=== PATIENT | female | born 1940 | race Caucasian/White ===

== ENCOUNTER 2017-06-02 13:34 | Day surgery (SDC) | payer OTHER ==
[2017-06-02] MEDS ORDERED: BETADINE OPHTH SOLN 5% EACHEYE ONE (13:35)
[2017-06-02] MEDS ORDERED: TETRACAINE 0.5% OPHTH 1 DOSE AFFEYE ONE ×3 (13:35→14:42)
[2017-06-02] MEDS ORDERED: NS 500 ML IV 500 ML IV ONE (13:46)
[2017-06-02] MEDS ORDERED: VIGAMOX 0.5% OPHTH 1 DOSE AFFEYE ONE ×5 (13:50→15:00)
[2017-06-02] MEDS ORDERED: PROLENSA OPHTH 1 DOSE AFFEYE ONE (14:01)
[2017-06-02] MEDS ORDERED: ALPHAGAN-P OPHTH 1 DOSE AFFEYE ONE (14:02)
[2017-06-02] MEDS ORDERED: CYCLOGYL 1% OPHTH 1 DOSE OP ONE ×3 (14:03→14:15)
[2017-06-02] MEDS ORDERED: AK-DILATE 2.5% OPHTH 1 DOSE OP ONE ×3 (14:03→14:15)
[2017-06-02] MEDS ORDERED: MYDRIACIL OPHTH 1 DOSE AFFEYE ONE ×3 (14:04→14:15)
[2017-06-02] MEDS ORDERED: DIPRIVAN VIAL ONE (14:17)
[2017-06-02] MEDS ORDERED: VERSED ONE (14:17)
[2017-06-02] MEDS ORDERED: DUOVISC IO ONE (14:43)
[2017-06-02] MEDS ORDERED: BSS OPHTH (PLAIN) 500 ML with VANCOMYCIN HCL 500 MG VIAL 25 MG, ADRENALINE CHL INJ 1 MG IR ONE ×3 (14:43)
[2017-06-02] MEDS ORDERED: XYLOCAINE-MPF 1% IJ ONE (14:43)
[2017-06-02] MEDS ORDERED: ADRENALINE CHL INJ IJ ONE (14:43)
[2017-06-02 16:15] VITALS: BP 139/80
== END 2017-06-02 15:25 | disposition home or self-care (01) ==
LOC: SURG1 13:34
PROVIDERS: ATTEND Ophthalmology
PROC: 08RK3JZ Replacement of Left Lens with Synthetic Substitute, Percutaneous Approach (ICD-10-PCS; principal; 2017-06-02 20:30)
PROC: 08DK3ZZ Extraction of Left Lens, Percutaneous Approach (ICD-10-PCS; principal; 2017-06-02 20:30)
DX: H25.12 Age-related nuclear cataract, left eye (principal); H25.012 Cortical age-related cataract, left eye; H52.222 Regular astigmatism, left eye
CPT/HCPCS: 99100; A9270; A4217; J0170; J2250; J3370; J3490

== ENCOUNTER 2017-06-16 08:01 | Day surgery (SDC) | payer OTHER ==
[2017-06-16] MEDS ORDERED: NS 500 ML IV 500 ML IV ONE (08:22)
[2017-06-16] MEDS ORDERED: TETRACAINE 0.5% OPHTH 1 DOSE AFFEYE ONE ×6 (09:00→11:28)
[2017-06-16] MEDS ORDERED: DUREZOL OPHTH 1 DOSE AFFEYE ONE (09:00)
[2017-06-16] MEDS ORDERED: VIGAMOX 0.5% OPHTH 1 DOSE AFFEYE ONE ×4 (09:10→11:42)
[2017-06-16] MEDS ORDERED: PROLENSA OPHTH 1 DOSE AFFEYE ONE (09:11)
[2017-06-16] MEDS ORDERED: CYCLOGYL 1% OPHTH 1 DOSE OP ONE ×3 (09:12→09:22)
[2017-06-16] MEDS ORDERED: MYDRIACIL OPHTH 1 DOSE AFFEYE ONE ×3 (09:12→09:22)
[2017-06-16] MEDS ORDERED: AK-DILATE 2.5% OPHTH 1 DOSE OP ONE ×3 (09:12→09:22)
[2017-06-16] MEDS ORDERED: BETADINE OPHTH SOLN 5% EACHEYE ONE (11:10)
[2017-06-16] MEDS ORDERED: ADRENALINE CHL INJ IJ ONE ×2 (11:14→11:28)
[2017-06-16] MEDS ORDERED: XYLOCAINE-MPF 1% IJ ONE ×2 (11:15→11:28)
[2017-06-16] MEDS ORDERED: DUOVISC IO ONE ×2 (11:18→11:28)
[2017-06-16] MEDS ORDERED: BSS OPHTH (PLAIN) 500 ML with VANCOMYCIN HCL 500 MG VIAL 25 MG, ADRENALINE CHL INJ 1 MG IR ONE ×6 (11:19)
[2017-06-16 12:24] VITALS: BP 149/70
[2017-06-16] MEDS ORDERED: DIPRIVAN VIAL ONE (14:03)
[2017-06-16] MEDS ORDERED: VERSED ONE (14:03)
== END 2017-06-16 12:10 | disposition home or self-care (01) ==
LOC: SURG1 08:01
PROVIDERS: ATTEND Ophthalmology
PROC: 08RJ3JZ Replacement of Right Lens with Synthetic Substitute, Percutaneous Approach (ICD-10-PCS; principal; 2017-06-16 12:45)
PROC: 08DJ3ZZ Extraction of Right Lens, Percutaneous Approach (ICD-10-PCS; principal; 2017-06-16 12:45)
DX: H25.11 Age-related nuclear cataract, right eye (principal); H25.011 Cortical age-related cataract, right eye; H52.221 Regular astigmatism, right eye
CPT/HCPCS: 99100; A9270; A4217; J0170; J2250; J3370; J3490